=== PATIENT | male | born 1975 | race Two or more races ===

== ENCOUNTER 2025-04-11 04:32 | Emergency (ER) | payer MEDICAID, OTHER ==
[~2025-04-11] VITALS: Ht 167.6 cm; Wt 71.2 kg
[2025-04-11] MEDS ORDERED: IOHEXOL-300 100 ML VIAL IV ONE (06:04)
[2025-04-11] MEDS ORDERED: CT SWABBABLE VALVE TRANS SET 1 EA INFUS.SET MC ONE (06:04)
[2025-04-11] MEDS ORDERED: IV NS 0.9% 250 ML IV ONE (06:05)
[2025-04-11] MEDS: IV NS 0.9% 1,000 ML BAG IV ONE (06:15)
[2025-04-11] MEDS ORDERED: ACETAMINOPHEN ES 500 MG TABLET ONE (06:20)
[2025-04-11] MEDS: ACETAMINOPHEN ES 500 MG TABLET PO ONE (06:21)
[2025-04-11 06:41] LABS: PLATELET COUNT (AUTO) 267 K/uL (150-450); RED BLOOD CELL COUNT(AUTO) 5.31 MIL/uL (4.5-6.0); RED CELL DISTRIBUTION WIDTH 13.7 % (11.5-15.0); WHITE BLOOD COUNT (AUTO) 11.7 K/uL (4.3-11.0)
[2025-04-11 06:48] LABS: CALCIUM, SERUM 8.6 mg/dL (8.5-10.1); CREATININE 1.0 mg/dL (0.6-1.3); SODIUM SERUM 139.0 mmol/L (136-145); UREA NITROGEN, BLOOD 10.0 mg/dL (7-18)
[2025-04-11 06:52] LABS: INR 0.98 (0.91-1.10)
[2025-04-11 10:15] VITALS: BP 135/89; TEMP 97.9; O2SAT 100
== END 2025-04-11 10:19 | disposition home or self-care (01) ==
LOC: ER 04:34
DX: S20.219A Contusion of unspecified front wall of thorax, initial encounter (principal); S30.1XXA Contusion of abdominal wall, initial encounter; S09.8XXA Other specified injuries of head, initial encounter; Z60.2 Problems related to living alone; V53.5XXA Driver of pick-up truck or van injured in collision with car, pick-up truck or van in traffic accident, initial encounter; Y93.89 Activity, other specified; Y92.410 Unspecified street and highway as the place of occurrence of the external cause; Y99.8 Other external cause status
CPT/HCPCS: 99285; 72125; 96360; 71260; 70450; 74177; 85025; 80048; 36415; 85730; J7030; J7050; Q9967